=== PATIENT | female | born 1990 | race Caucasian/White ===

== ENCOUNTER → 2019-04-05 14:11 | Outpatient (CLI) | payer OTHER, SELFPAY ==
--- NOTE | 2019-04-05 | DI.US.S_ITS ---
PROCEDURE: US PELVIC COMPLETE INDICATIONS: HIRSUTISM TECHNIQUE: Real-time scanning was performed of the pelvic organs, with image documentation. Additional endovaginal scanning was necessary due to incomplete visualization of the adnexal and endometrial structures by transabdominal scanning. COMPARISON: [facility], , PELVIC COMPLETE, 07/16/2016, 13:10. FINDINGS: Transabdominal scanning: Limited scanning through the kidneys shows no hydronephrosis. No pathologic free abdominal or pelvic fluid. Endovaginal scanning: Uterus: Uterus is normal in size at 8.5 x 3.9 x 4.7 cm. The endometrium measures 2.4 mm in combined thickness. Ovaries: Ovaries normal in size measuring 3.9 x 2.9 x 3.1 cm on the right and 2.9 x 2.1 x 3.3 cm on the left. Bilateral simple ovarian cysts, largest of which is on the right measuring up to 3.2 cm and 2.6 cm on the left. IMPRESSION: Bilateral simple ovarian cysts. Dictated by: Cody EDWARDS Interpreted: Nico Lynch MD on 04/05/2019 at 15:59 Approved by: Nico Lynch M.D. on 04/05/2019 at 20:35
== END ==
PROVIDERS: PCP Family Medicine; Visit Provider Internal Medicine
DX: L68.0 Hirsutism (principal); N83.292 Other ovarian cyst, left side; N83.291 Other ovarian cyst, right side
CPT/HCPCS: 76830; 76856